=== PATIENT | female | born 1945 | race Caucasian/White ===

== ENCOUNTER 2022-02-27 20:18 | Inpatient (IN) | payer MEDICARE, MEDICAID ==
[~2022-02-27] VITALS: Ht 167.6 cm; Wt 54.0 kg
[2022-02-28] MEDS ORDERED: OLANZAPINE 10 MG/VIAL IM ONE (01:45)
[2022-02-28] MEDS ORDERED: DIPHENHYDRAMINE 50MG/ML VIAL IM ONE (01:45)
[2022-02-28 02:53] LABS: BASOPHILS % 0.6 % (0.0-2.0); EOSINOPHILS % 0.4 % (0.0-5.0); HEMATOCRIT. 35.4 % (36.0-48.0); HEMOGLOBIN. 11.9 g/dL (12.0-16.0); LYMPHOCYTES % 9.1 % (20.0-50.0); MEAN CORPUSCULAR VOLUME 95.6 fL (81.0-99.0); MEAN PLATELET VOLUME 10.3 fl (7.4-10.4); MONOCYTES % 5.7 % (2.0-8.0); NEUTROPHILS % 84.2 % (40.0-76.0); PLATELET 160 x1000/uL (130-400); RED BLOOD CELL COUNT 3.71 mill/uL (4.2-5.4); RED CELL DISTRIBUTION WIDTH 16.2 % (11.6-14.6)
[2022-02-28 03:02] LABS: CHLORIDE 108 mEq/L (98-107)
[2022-02-28] MEDS ORDERED: APIXABAN 5 MG TABLET PO STA (06:05)
[2022-02-28 06:08] LABS: PROTHROMBIN TIME 10.9 sec (9.6-11.0)
[2022-02-28] MEDS ORDERED: IPRATROPIUM/ALBUTEROL 0.5-3(2.5)MG/3ML NEB HHN PRN (10:00)
[2022-02-28] MEDS ORDERED: MORPHINE SULFATE 2 MG/ML CPJ (NOT FOR IM USE) IV PRN (10:00)
[2022-02-28] MEDS ORDERED: NALOXONE HCL 0.4MG/ML VIAL IV PRN (10:00)
[2022-02-28] MEDS ORDERED: CLONIDINE 0.1MG TABLET PO PRN (10:00)
[2022-02-28] MEDS ORDERED: ONDANSETRON HCL 4MG/2ML INJ IV PRN (10:00)
[2022-02-28] MEDS ORDERED: ACETAMINOPHEN 325MG TABLET PO PRN (10:00)
[2022-02-28] MEDS ORDERED: DIPHENHYDRAMINE 50MG/ML VIAL IV PRN (10:00)
[2022-02-28] MEDS ORDERED: OLANZAPINE 10 MG/VIAL IM NR (10:15)
[2022-02-28] MEDS ORDERED: DIPHENHYDRAMINE 50MG/ML VIAL IM NR (10:15)
[2022-02-28] MEDS: ENOXAPARIN 60MG/0.6ML SYR SUBCUT SCH (18:51)
[2022-03-01] VITALS (7 sets, daily range): BP systolic 86–119; BP diastolic 39–75
[2022-03-01] MEDS: ENOXAPARIN 60MG/0.6ML SYR SUBCUT SCH ×2 (06:00→09:19)
[2022-03-01] MEDS ORDERED: PANT40SU PO (07:22)
[2022-03-01] MEDS ORDERED: PROT40 PO (07:22)
[2022-03-01] MEDS ORDERED: MIRT-111 PO (07:22)
[2022-03-01] MEDS ORDERED: ATOR20TA65 PO (07:22)
[2022-03-01] MEDS ORDERED: ALEN70TA79 PO (07:22)
[2022-03-01] MEDS ORDERED: LORA10TA7 PO (07:22)
[2022-03-01] MEDS ORDERED: CELE50CA PO (07:26)
[2022-03-01 09:38] LABS: BASOPHILS % 0.5 % (0.0-2.0); EOSINOPHILS % 1.1 % (0.0-5.0); HEMATOCRIT. 32.8 % (36.0-48.0); HEMOGLOBIN. 11.1 g/dL (12.0-16.0); LYMPHOCYTES % 13.4 % (20.0-50.0); MEAN CORPUSCULAR HEMOGLOBIN 32.3 pg (28.0-32.0); MEAN CORPUSCULAR VOLUME 95.1 fL (81.0-99.0); MEAN PLATELET VOLUME 10.5 fl (7.4-10.4); PLATELET 191 x1000/uL (130-400); RED BLOOD CELL COUNT 3.44 mill/uL (4.2-5.4); RED CELL DISTRIBUTION WIDTH 15.6 % (11.6-14.6)
[2022-03-01 09:44] LABS: CHLORIDE 111 mEq/L (98-107)
[2022-03-01] MEDS ORDERED: POTASSIUM CHLORIDE 20MEQ TABLET SR PO SCH (11:15)
[2022-03-02] VITALS: BP 111/63
[2022-03-02 04:00] VITALS: BP 106/65
[2022-03-02] MEDS: ENOXAPARIN 60MG/0.6ML SYR SUBCUT SCH ×2 (05:24→18:36)
[2022-03-02 06:40] LABS: EOSINOPHILS % 2.4 % (0.0-5.0); HEMATOCRIT. 30.3 % (36.0-48.0); HEMOGLOBIN. 10.1 g/dL (12.0-16.0); LYMPHOCYTES % 25.5 % (20.0-50.0); MEAN CORPUSCULAR VOLUME 95.4 fL (81.0-99.0); MEAN PLATELET VOLUME 9.9 fl (7.4-10.4); MONOCYTES % 8.6 % (2.0-8.0); NEUTROPHILS % 62.5 % (40.0-76.0); PLATELET 198 x1000/uL (130-400); RED BLOOD CELL COUNT 3.17 mill/uL (4.2-5.4); RED CELL DISTRIBUTION WIDTH 15.6 % (11.6-14.6)
[2022-03-02 08:00] VITALS: BP 120/62
[2022-03-02 12:00] VITALS: BP 133/64
[2022-03-02 16:00] VITALS: BP 115/65
[2022-03-02 20:00] VITALS: BP 120/55
[2022-03-03] VITALS: BP 113/59
[2022-03-03 04:00] VITALS: BP 104/50
[2022-03-03] MEDS: ENOXAPARIN 60MG/0.6ML SYR SUBCUT SCH (05:18)
[2022-03-03 06:33] LABS: BASOPHILS % 0.7 % (0.0-2.0); EOSINOPHILS % 2.5 % (0.0-5.0); HEMATOCRIT. 31.4 % (36.0-48.0); HEMOGLOBIN. 10.6 g/dL (12.0-16.0); LYMPHOCYTES % 35.3 % (20.0-50.0); MEAN CORPUSCULAR HEMOGLOBIN 32.1 pg (28.0-32.0); MEAN CORPUSCULAR VOLUME 95.3 fL (81.0-99.0); MEAN PLATELET VOLUME 10.1 fl (7.4-10.4); MONOCYTES % 7.5 % (2.0-8.0); PLATELET 258 x1000/uL (130-400); RED BLOOD CELL COUNT 3.29 mill/uL (4.2-5.4); RED CELL DISTRIBUTION WIDTH 15.3 % (11.6-14.6)
[2022-03-03 06:51] LABS: CHLORIDE 107 mEq/L (98-107)
[2022-03-03 08:00] VITALS: BP 120/52
[2022-03-03 12:00] VITALS: BP 124/72
[2022-03-03] MEDS ORDERED: HEPARIN 1000 UNITS/ML 10ML ONE (12:40)
[2022-03-03] MEDS ORDERED: IODIXANOL 320MG/ML 100 ML BOTTLE IV ONE (12:40)
[2022-03-03] MEDS ORDERED: LIDOCAINE HCL/PF 1% 10 MG/ML 5ML VIAL ONE ×2 (12:47)
[2022-03-03] MEDS ORDERED: LIDOCAINE HCL 1% 20ML VIAL (Pyxis) INJ ONE (12:49)
[2022-03-03] MEDS ORDERED: FENTANYL CITRATE/PF 50MCG/ML 2ML VIAL ONE ×2 (13:07→14:14)
[2022-03-03] MEDS ORDERED: MIDAZOLAM HCL 2 MG/2 ML VIAL ONE ×2 (13:07→14:15)
[2022-03-03] MEDS ORDERED: HEPARIN SODIUM 1,000 UNIT/1ML VIAL IV ONE ×2 (14:15→14:30)
[2022-03-03] MEDS ORDERED: LIDOCAINE HCL/PF 2% 20MG/ML 5 ML/VIAL ONE (14:38)
[2022-03-03 15:00] VITALS: BP 158/86
[2022-03-03] MEDS ORDERED: APIX5TAB MT (15:54)
[2022-03-03 20:28] VITALS: BP 101/57
[2022-03-03] MEDS: APIXABAN 5 MG TABLET PO SCH (22:18)
[2022-03-04] VITALS: BP 113/48
[2022-03-04 04:23] VITALS: BP 104/59
[2022-03-04 08:00] VITALS: BP 129/40
[2022-03-04] MEDS: APIXABAN 5 MG TABLET PO SCH (08:19)
[2022-03-04 10:39] VITALS: BP 124/40
[2022-03-04 12:00] VITALS: BP 115/64
[2022-03-10] MEDS ORDERED: APIXABAN 5 MG TABLET PO SCH (17:00)
== END 2022-03-04 18:10 | disposition home health service (06) | DRG 272 ==
LOC: ER 20:18 → MICUSO 02-28 06:12 → 7WST 02-28 22:52 → 3WST 03-03 15:30
PROVIDERS: ADMIT Internal Medicine; ATTEND Internal Medicine
PROC: 06CN3ZZ Extirpation of Matter from Left Femoral Vein, Percutaneous Approach (ICD-10-PCS; principal; 2022-03-03)
PROC: B5191ZZ Fluoroscopy of Inferior Vena Cava using Low Osmolar Contrast (ICD-10-PCS; 2022-03-03)
PROC: B51C1ZZ Fluoroscopy of Left Lower Extremity Veins using Low Osmolar Contrast (ICD-10-PCS; 2022-03-03)
DX: I82.432 Acute embolism and thrombosis of left popliteal vein (principal); E78.00 Pure hypercholesterolemia, unspecified; I82.422 Acute embolism and thrombosis of left iliac vein; I10 Essential (primary) hypertension; M19.90 Unspecified osteoarthritis, unspecified site; Z96.652 Presence of left artificial knee joint; Z88.0 Allergy status to penicillin; W18.2XXA Fall in (into) shower or empty bathtub, initial encounter; Y93.E1 Activity, personal bathing and showering; Y92.89 Other specified places as the place of occurrence of the external cause; Y99.8 Other external cause status
CPT/HCPCS: 36415; 37187; 73562; 73590; 75820; 75825; 80048; 80053; 85025; 85347; 93971; 94640; 99285; C1769; C1893; C1894; J1200; J1644; J1650; J2250; J3010; J3490; L1830; Q9967

== ENCOUNTER → 2022-09-28 | Outpatient (CLI) | payer MEDICARE, MEDICAID ==
[~2022-09-28] MED LIST: ALEN70TA79 PO; APIX5TAB MT; ATOR20TA65 PO; LORA10TA7 PO; MIRT-111 PO; PROT40 PO
== END | disposition home or self-care (01) ==
LOC: US 11:16
PROVIDERS: ATTEND Internal Medicine
DX: M79.662 Pain in left lower leg (principal); M79.661 Pain in right lower leg
CPT/HCPCS: 93970